=== PATIENT | male | born 1985 | race Two or more races ===

== ENCOUNTER 2025-05-06 12:57 | Outpatient (CLI) | payer MEDICAID ==
--- NOTE | 2025-05-06 14:33 | RADIOLOGY REPORT ---
CLINICAL INFORMATION: Right shoulder pain. TECHNIQUE: Multisequence multiplanar MRI images of the right shoulder were obtained without contrast. COMPARISON: None FINDINGS: Acromioclavicular joint: There is [id number] acromioclavicular hypertrophy and [id number] edema. There is Type 2 acromion. Small amount of fluid in the subacromial / subdeltoid bursa. Rotator cuff tendons: Mild tendinosis of the distal supraspinatus and infraspinatus tendons without evidence of tear. Subscapularis and teres minor tendons are intact. Biceps tendon: No significant tendinosis. No evidence of attrition or tear. Labrum: No labral tear identified. Bones: No fracture or focal marrow contusion. Muscles: Normal muscle bulk. No atrophy. Other: No other significant findings. IMPRESSION: 1. Mild rotator cuff tendinosis without evidence of tear. 2. [id number] acromioclavicular hypertrophy with mild subacromial / subdeltoid bursitis.
== END 2025-05-06 23:59 | disposition home or self-care (01) ==
LOC: MRI02 12:57
PROVIDERS: ATTEND Nurse Practitioner
DX: M75.101 Unspecified rotator cuff tear or rupture of right shoulder, not specified as traumatic (principal); M25.511 Pain in right shoulder; M75.51 Bursitis of right shoulder; M89.311 Hypertrophy of bone, right shoulder
CPT/HCPCS: 73221